=== PATIENT | male | born 1970 | race Caucasian/White ===

== ENCOUNTER → 2017-10-01 | Outpatient (CLI) | payer BC ==
--- NOTE | 2017-10-01 18:29 | MR ---
EXAMINATION TYPE: MR shoulder RT wo con DATE OF EXAM: 10/01/2017 COMPARISON: Outside right shoulder x-ray September 10, 2017 HISTORY: Rt shoulder pain x several years, no trauma TECHNIQUE: Multiplanar, multisequence imaging of the right shoulder is performed without contrast. FINDINGS: Rotator Cuff: There is marked increased signal distal supraspinatus tendon . There is large anterior near humeral head articulation. A few fibers anteriorly remain present, tear measures 1.[address] parasagittal image 9. Infraspinatus tendon is intact. Rotator cuff muscle bulk is preserved. Subs capularis tendon is intact. Acromioclavicular Joint: Distal acromion morphology is unremarkable. Some joint space loss and mild s purring is seen at acromioclavicular joint. Underlying fat plane is maintained. Glenohumeral Joint: There is small to moderate glenohumeral joint effusion. No significant spurring i s seen. Labrum: The labrum appears grossly intact given limitation of non-arthrogram study. Biceps Tendon: The long head of biceps is in normal location within bicipital groove. Bone marrow signal: Subchondral cystic change superior humerus is seen paracoronal image 16. Other: No additional significant abnormality is appreciated. IMPRESSION: High-grade tendinosis and significant fairly large partial tear distal supraspinatus tend on.
== END | disposition home or self-care (01) ==
LOC: RADMRIMAIN 16:40
PROVIDERS: ATTEND Orthopaedic Surgery
DX: S46.011A Strain of muscle(s) and tendon(s) of the rotator cuff of right shoulder, initial encounter (principal); M75.91 Shoulder lesion, unspecified, right shoulder

== ENCOUNTER → 2017-10-13 | Outpatient (CLI) | payer BC ==
[2017-10-13 16:27] LABS: Basophils # (A) 0.1 k/uL (0-0.2); Basophils % (A) 1 %; Eosinophils # (A) 0.3 k/uL (0-0.7); Eosinophils % (A) 3 %; HGB 13.9 gm/dL (13.0-17.5); Lymphocytes # (A) 3.3 k/uL (1.0-4.8); Lymphocytes % (A) 36 %; MCH 30.1 pg (25.0-35.0); MCHC 31.6 g/dL (31.0-37.0); MCV 95.2 fL (80.0-100.0); Mean Platelet Volume 6.7; Monocytes # (A) 0.4 k/uL (0-1.0); Monocytes % (A) 5 %; Neutrophils # (A) 4.9 k/uL (1.3-7.7); Neutrophils % (A) 54 %; Platelet Count 313 k/uL (150-450); RBC 4.63 m/uL (4.30-5.90); WBC 9.1 k/uL (3.8-10.6)
[2017-10-13 16:38] LABS: Potassium 4.4 mmol/L (3.5-5.1)
== END | disposition home or self-care (01) ==
LOC: LABWHC1 15:47
PROVIDERS: ATTEND Orthopaedic Surgery
DX: Z01.812 Encounter for preprocedural laboratory examination (principal); M75.41 Impingement syndrome of right shoulder
CPT/HCPCS: 36415; 80051; 85025

== ENCOUNTER 2017-10-29 05:48 | Day surgery (SDC) | payer BC ==
[2017-10-27 15:49] VITALS: BMI 38.3
--- NOTE | 2017-10-28 16:37 | HP ---
HISTORY AND PHYSICAL REASON FOR ADMISSION: Surgery on 10/29/17 HISTORY OF PRESENT ILLNESS: Dakota Esparza is a 47-year-old patient seen with progressive right shoulder pain. After we discussed treatment options, he elected to proceed with right shoulder arthroscopy. Consent regarding the procedure was obtained. PAST MEDICAL HISTORY: Noncontributory. PAST SURGICAL HISTORY: Noncontributory. MEDICATIONS: [place] as needed. ALLERGIES: ARE TO PENICILLIN AND MOTRIN. SOCIAL HISTORY: The patient currently smokes cigarettes. PHYSICAL EXAMINATION: Evaluation right shoulder flexion is 160 degrees, abduction 140 degrees, external rotation is 30 degrees with some weakness. There is tenderness along the anterolateral acromion rotator cuff insertion site. There is positive impingement at 110 degrees. Positive drop-arm sign. Distal neurovascular exam is intact. RADIOGRAPHS: Right shoulder 08/31/2017 revealed a type 2 anterior acromion. Cystic changes of the tuberosity and acromioclavicular joint osteoarthritis. An MRI of right shoulder revealed a rotator cuff tendon tear. IMPRESSION: 1. Right shoulder impingement with rotator cuff tear. 2. Right shoulder acromioclavicular joint osteoarthritis. 3. Tobacco use. PLAN: Right shoulder arthroscopy with subacromial decompression probable arthroscopic rotator cuff repair, possible Angie procedure and debridement. Surgery scheduled for 10/29/2017. MMODL / IJN: [id number] /
[~2017-10-29 05:48] MED LIST: ceFAZolin IN SWFI 2 GM/20 ML SYRINGE IVP ONE
[2017-10-29] MEDS ORDERED: ONDANSETRON 4 MG/2 ML VIAL IVP ONE ×2 (05:58→10:03)
[2017-10-29] MEDS ORDERED: MORPHINE SULFATE 2 MG/ML SYRINGE IV PRN (05:58)
[2017-10-29] MEDS ORDERED: LACTATED RINGERS 1,000 ML IV SCH (05:58)
[2017-10-29] MEDS ORDERED: MIDAZOLAM 2 MG/2 ML VIAL IV PRN (05:58)
[2017-10-29] MEDS ORDERED: SCOPOLAMINE 1.5MG/72HR PATCH TRANSDERM ONE (05:58)
[2017-10-29] MEDS ORDERED: DEXAMETHASONE SOD PHOSPHATE 10 MG/ML 1 ML VIAL IV ONE (05:58)
[2017-10-29] MEDS ORDERED: LIDOCAINE 1% 20 ML VIAL (10MG/ML) FOR IV START INTRADERMA PRN (05:58)
[2017-10-29] MEDS ORDERED: MIDAZOLAM 2 MG/2 ML VIAL IVP ONE (07:10)
[2017-10-29] MEDS ORDERED: PROPOFOL 10 MG/ML 20 ML VIAL IV ONE (07:25)
[2017-10-29] MEDS ORDERED: LIDOCAINE 1% INJ 10MG/ML (20 ML MDV) ONE (07:25)
[2017-10-29] MEDS ORDERED: LIDOCAINE 2%-EPI 1:100,000 20 ML VIAL ONE (07:25)
[2017-10-29] MEDS ORDERED: MIDAZOLAM 2 MG/2 ML VIAL ONE (07:25)
[2017-10-29] MEDS ORDERED: ROPIVACAINE 5 MG/ML 30 ML VIAL ONE (07:25)
[2017-10-29] MEDS ORDERED: fentaNYL (PF) 50 MCG/ML 2 ML AMP ONE (07:25)
[2017-10-29] MEDS ORDERED: SUCCINYLCHOLINE CHLORIDE 100 MG/5 ML SYR IV ONE (07:25)
[2017-10-29] MEDS ORDERED: LACTATED RINGERS 1,000 ML IV ONE (08:19)
[2017-10-29 09:03] VITALS: RESP 16; TEMP 97.2
--- NOTE | 2017-10-29 09:03 | P.OP ---
Date of Procedure: 10/29/17 Preoperative Diagnosis: Right shoulder impingement Postoperative Diagnosis: 1. Right shoulder rotator cuff tear 2. Right shoulder impingement 3. Right shoulder acromioclavicular joint osteoarthritis 4. Right shoulder partial long head biceps tendon tear 5. Right shoulder superficial labral tear 6. 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 Right shoulder arthroscopic rotator cuff repair 2. Right shoulder arthroscopic subacromial decompression 3. Right shoulder arthroscopic Angie procedure 4. Right shoulder arthroscopic biceps tenotomy 5. Right shoulder arthroscopic debridement labral tear 6. Right shoulder arthroscopic chondroplasty glenoid Implants: 2-5.5 valeris peek anchors Anesthesia: GETA, regional (Interscalene block) Surgeon: Aries Murguia Duty Engineer #1: Neel Morillo Estimated Blood Loss (ml): 12 Pathology: none sent Condition: stable Disposition: PACU Indications for Procedure: 47-year-old patient seen with progressive right shoulder pain. After treatment options were discussed, he elected to proceed with arthroscopy. Operative Findings: see description of procedure Description of Procedure: Patient underwent a shoulder block by department of anesthesia. The patient was then taken to the operative suite. The patient underwent a general anesthetic by the department of anesthesia. The patient was placed into a lateral position and secured. There was appropriate padding of the bony prominence. Right shoulder was then prepped and draped in normal sterile orthopedic fashion. We placed the extremity in 10 pounds of longitudinal traction. A posterior incision was now made for a posterior working portal site. The trocar and cannula were inserted into the glenohumeral joint. Arthroscopy was initiated. Spinal needle was now inserted anteriorly, to ascertain the anterior working portal site. An incision was now made in that area, a trocar was inserted followed by a probe. There was superficial tearing of the superior and anterior labrum. There was an area along the anterior glenoid with grade 1/2 chondromalacia. There was partial tearing and hyperemia of the biceps tendon. There was some obvious partial tearing along the supraspinous area at least visualized from the glenohumeral side. I debrided those labral tears down to stable tissue. I performed an arthroscopic biceps tenotomy. I performed a chondroplasty of the anterior glenoid. I debrided the undersurface of the rotator cuff tendon tearing. The residual labrum was stable. The residual osteochondral surface anterior glenoid stable. There did appear to be a through and through perforation distal supraspinatus visualized from glenohumeral side. Instruments now removed from the glenohumeral joint. Utilizing the posterior working portal site, the trocar and cannula were inserted into the subacromial space. Arthroscopy initiated. I made an incision 2 fingerbreadths lateral to the acromion. I introduced my trocar followed by my ArthroCare ablator. I now began ablating thick subacromial bursal tissue, which exposed the undersurface of the anterior acromion. This was diminished subacromial space. There was a very prominent anterior acromion. A motorized bur was introduced and a subacromial decompression was performed. I also excised some osteophytes off the inferior aspect of the distal clavicle. The AC joint was visualized and noted to be fairly arthritic. Our motorized bur was introduced in the anterior portal site and a Angie procedure was performed without difficulty, decompressing the AC joint nicely. I turned my attention to the rotator cuff. There was a 1-1.5 cm tear distal supraspinatus. I debrided the margins down to stable tissue. The defect now measured about 1.5 cm. I abraded the footprint with a motorized bur. I introduced 2 everted mattress sutures through good bites of rotator cuff tendon. When I pull the tendon over the footprint it appeared to have some dog earring occurring a little bit anteriorly and posteriorly. I passed 2 suture loops through good bites of rotator cuff tendon. I repaired the tendon with those 2 everted mattress sutures with one 5.5 anchor and then over that repaired the dogear element with a suture loops and one additional lateral 5.5 anchor. Residual suture limbs were clipped. We had good compression of the tendon along the footprint. I injected 1 mL of UCT intra-articular. Instruments now removed from the portal sites. All portal sites were approximated with nylon suture. Sterile dressings were applied followed by a shoulder immobilizer. Braxton BILLY assisted with the procedure. The patient was awakened, transferred to a bed, and taken to recovery in stable condition.
[2017-10-29 10:03] VITALS: BP 115/74; PULSE 73
[2017-10-29] MEDS ORDERED: HYDROcodone/APAP 7.5-325MG 1 EACH TAB PO ONE (10:08)
--- NOTE | 2017-10-29 19:46 | P.ONQ ---
Anesthesiology Proc Note - PNB - Peripheral Nerve Block Performed Right Interscalene Single Time Out Performed: Yes Procedure Start Time: 07:05 Procedure Stop Time: 07:11 Indication: Acute Post-Operative Pain, Requested by physician Sedation Type: Sedate with meaningful contact maintained Preparation: Sterile Prep Position: Supine Needle Size: 50mm (2") Needle Gauge: 21 Technique: Ultrasound Injectate: 0.5% Ropivacaine (see comment for volume) (ropi .5% 30cc) Blood Aspirated: No Pain Paresthesia on Injection Noted: No Resistance on Injection: Normal Events: Uneventful and Well Tolerated
== END 2017-10-29 10:37 | disposition home or self-care (01) ==
LOC: OR 05:48
PROVIDERS: ATTEND Orthopaedic Surgery
DX: M75.101 Unspecified rotator cuff tear or rupture of right shoulder, not specified as traumatic (principal); M75.41 Impingement syndrome of right shoulder; K21.9 Gastro-esophageal reflux disease without esophagitis; M19.011 Primary osteoarthritis, right shoulder; S46.111A Strain of muscle, fascia and tendon of long head of biceps, right arm, initial encounter; S43.491A Other sprain of right shoulder joint, initial encounter; M94.211 Chondromalacia, right shoulder; Z88.0 Allergy status to penicillin; Z88.6 Allergy status to analgesic agent; Z91.040 Latex allergy status; Z87.891 Personal history of nicotine dependence; Z79.891 Long term (current) use of opiate analgesic; Z79.899 Other long term (current) drug therapy
CPT/HCPCS: 64415; 29827; 29824; 29826; 29822; C1713; C1765; J2250; J1100; J2405; J2001; J3010; J2795; J0330; J2704; J0690

== ENCOUNTER → 2018-06-04 | Outpatient (CLI) | payer BC ==
--- NOTE | 2018-06-04 18:03 | MR ---
EXAMINATION TYPE: MR cervical spine wo con DATE OF EXAM: 06/04/2018 COMPARISON: Plain film 05/11/2018 HISTORY: Neck and shoulder pain TECHNIQUE: Multiplanar, multisequence images of the cervical spine were acquired. C2-C3: No evidence for degenerative disc disease. No disc bulge/herniation or protrusion. No Canal stenosis. Foramina are patent bilaterally. C3-C4: Posterior broad-based disc bulge causes mild anterior mass effect on the thecal sac, uncoverte bral joint hypertrophy encroaches on the bilateral facets, no significant central canal stenosis. C4-C5: Uncovertebral joint hypertrophy causes bilateral foraminal encroachment. No significant centra l stenosis. C5-C6: Posterior extension of endplate disc complex causes anterior mass effect on the thecal sac and likely contact with the cervical cord causing moderate to severe central canal stenosis. Circumferen tial extension endplate disc complex, uncovertebral joint hypertrophy cause significant foraminal enc roachment bilaterally. C6-C7: Posterior extension endplate disc complex results in anterior mass effect on the thecal sac, o nly mild central stenosis. Uncovertebral joint hypertrophy results in left-sided foraminal encroachme nt. C7-T1: No evidence for degenerative disc disease. No disc bulge/herniation or protrusion. No Canal stenosis. Foramina are patent bilaterally. Cervical segments are intact. There is normal alignment. Cervical spinal cord is of normal signal. Craniovertebral junction relationships are within normal limits. There is multilevel spondylosis. E ndplate discogenic marrow signal change with associated loss of disc height and signal present at C5- 6, C6-7. IMPRESSION: Spinal stenosis. Degenerative disc disease, multilevel foraminal encroachment.
== END ==
LOC: RADMRIMAIN 16:47
PROVIDERS: ATTEND Orthopaedic Surgery
DX: M48.02 Spinal stenosis, cervical region (principal); M50.30 Other cervical disc degeneration, unspecified cervical region
CPT/HCPCS: 72141

== ENCOUNTER → 2018-06-29 | Outpatient (CLI) | payer BC ==
[2018-06-25 16:16] VITALS: BMI 37.5
[2018-06-29 13:20] VITALS: BP 126/78; RESP 16
[2018-06-29 13:31] VITALS: PULSE 78
--- NOTE | 2018-06-29 14:44 | P.PAINCN ---
History of Present Illness - Reason for Consult Consult date: 06/29/18 - History of Present Illness This is initial consultation this is for this 48 years old male with a chronic history of severe neck pain with radiation to the right shoulder blade area, pain is constant and increased with any neck movement, patient had the history of right shoulder pain and he had right shoulder arthroscopy with right rotator cuff repair, he did well after the surgery ( done in October 2017 ) the pain improved after the surgery, and in April 2018 he started having severe neck pain with radiation towards the right shoulder, he had MRI of the cervical spine done, and it showed multilevel cervical degenerative disc disease and multilevel uncovertebral joint hypertrophy, patient describes his pain as aching , sharp pain increases with any neck movement, is always on the right side, increased hyperextension of the neck, he denies any motor or sensory deficit, he denies any change in the bowel movement or urination, no fever or night sweats, he denies any numbness or tingling sensation. Past Medical History Past Medical History: GERD/Reflux, Musculoskeletal Disorder Additional Past Medical History / Comment(s): neck pain on right side for a few months History of Any Multi-Drug Resistant Organisms: None Reported Past Surgical History: Orthopedic Surgery, Tonsillectomy Additional Past Surgical History / Comment(s): hemorrhoidectomy,vasectomy,right rotator cuff repair Past Anesthesia/Blood Transfusion Reactions: No Reported Reaction Past Psychological History: No Psychological Hx Reported Smoking Status: Former smoker Past Alcohol Use History: Occasional Additional Past Alcohol Use History / Comment(s): quit smoking 2 yrs. ago Past Drug Use History: Marijuana Additional Drug Use History / Comment(s): rare use - Past Family History Mother Family Medical History: No Reported History Medications and Allergies Home Medications Medication Instructions Recorded Confirmed Type Omeprazole [PriLOSEC] 20 mg PO AC-BRKFST 10/27/17 06/29/18 History Naproxen Sodium [Aleve] 220 mg PO BID 06/25/18 06/29/18 History Allergies Allergy/AdvReac Type Severity Reaction Status Date / Time ibuprofen Allergy Rash/Hives Verified 06/29/18 13:09 Latex, Natural Rubber Allergy Rash/Hives Verified 06/29/18 13:09 Penicillins Allergy Rash/Hives Verified 06/29/18 13:09 Physical Exam Vitals: Vital Signs Pulse Resp BP Pulse Ox 06/29/18 13:10 78 16 126/78 98 Social history : not smoker , NO ETOH , NO Illegal drugs use . Family history : positive for Review of Systems : 1- Constitutional : no chills , no fever , no night sweats , 2- Ears : no ear discharge , no change in hearing 3-Nose, Mouth ,Throat ; no bleeding gums, no sore throat , no epistaxis , 4-Cardiovascular : Denies chest pain, , no orthopnea , no palpitation 5-Respiratory : Denies cough , no dyspnea , no hemoptysis 6-Gastrointestinal :, no change in bowel habits , no coffee- ground emesis . 7-Genitourinary : No hematuria , no discharge , no incontinence, 8-Musculoskeletal : No gait dysfunction , report neck pain with radiation towards the right shoulder blade area , 9- Neurological : no ataxia , no tremor , no sezure , 10-Psychatric , no suicidal ideation no hallucination 11- Endocrine : no cold intolerence , no polyuria , no polydypsia , 12-Hematologic : no easy bleeding , no easy brusing , 13-Allergic / immunology : no angioedema , no wheezing ,no allergic rhinitis 14-Integumentary : no brttle nails , no change hair / nails , no foot/leg ulcers . Physical Examinations : 1-Constitutional : Cooperative , not in acute distress . 2-HEENT : nech ; supple , no Lymphadenopathy , no Thyromegaly , :eyes , no icterus, no photophobia . ENT : , normal oropharynx , no Thrush 3- Respiratory : Chest clear to auscultations Bilaterally , no wheezing . 4- Cardiovascular : regular rate and rhythem , S1 , S2 , no S3 , no S4. 5- Gastrointestinal: abdomen soft no tenderness , no organomegally . 6- Genitourinary : Defferred . 7-Integumentary : No cellulitis , no ulcers , normal skin turgor , no cyanotic . 8- neurologic : Cranial nerve II to XII intact , no focal neurological deffecit 9-psychatric : alert , oriented X 3 , appropriate affect , intact judgment and insight . 10-Lymphatic : no Lymphadenopathy. 11- musculoskeltal: normal gait Cervical Spine motor stregnth in the deltoid and biceps, normal right side , normal Left side motor stregnth biceps and the wrist extensors normal right side ,normal left side . motor stregnth in the triceps muscle . normal Right side , normal Left side deep tendon reflexes normal at the biceps , normal at Brachioradialis , normal at triceps. positive cervical facet loading test on the right side only Lumber spine moter stegnth lower extremities ,thigh and legs 5/5 Right side , 5/5 Left side Results Comments: MRI of the cervical spine done 06/04/2018= C34 posterior broad based disc bulging and uncVertebral joint hypertrophy and facet hypertrophy, C4 5 and cold vertebral joint hypertrophy and bilateral foraminal engorgement, C5 6 moderate to severe canal stenosis, and and cold vertebral joint hypertrophy, C6 7 and uncovertebral joint hypertrophy Assessment and Plan Plan: Assessment and plan=1-severe neck pain secondary to cervical spondylosis with cervical facet arthropathy, and secondary to cervical degenerative disc disease Clinically most of the pain is coming from the facetogenic component, patient will be scheduled for diagnostic medial branch block cervical area, right side C3 4, C4 5, C5 6 , and C6 7 , x2 and benefits possibly proceed with the radiofrequency ablation Time with Patient: Greater than 30 PQRS Measure Charge Sheet PQRS Narrative: Smoking Status Former smoker Do You Want the Pneumonia No Vaccine AT THIS TIME? Blood Pressure 126/78 Pain Intensity [Right 5 Posterior Neck] Scale Used Numeric (1 - 10) Hx Alcohol Use (MH) No Home Medications: Ambulatory Orders Omeprazole [PriLOSEC] 20 mg PO AC-BRKFST 10/27/17 Naproxen Sodium [Aleve] 220 mg PO BID 06/25/18
== END | disposition home or self-care (01) ==
LOC: PNWHC3 12:41
PROVIDERS: ATTEND Specialist
DX: G89.29 Other chronic pain (principal); M50.21 Other cervical disc displacement, high cervical region; M50.30 Other cervical disc degeneration, unspecified cervical region; M47.812 Spondylosis without myelopathy or radiculopathy, cervical region; M46.92 Unspecified inflammatory spondylopathy, cervical region; K21.9 Gastro-esophageal reflux disease without esophagitis; Z87.891 Personal history of nicotine dependence; Z98.890 Other specified postprocedural states; Z79.1 Long term (current) use of non-steroidal anti-inflammatories (NSAID); Z79.899 Other long term (current) drug therapy; Z88.0 Allergy status to penicillin; Z88.6 Allergy status to analgesic agent; Z91.040 Latex allergy status
CPT/HCPCS: 99211

== ENCOUNTER → 2018-07-13 | Day surgery (SDC) | payer BC ==
[~2018-07-13] MED LIST changes: +SODIUM CHLORIDE 0.9% 500 ML 500 ML IV ONE; -ceFAZolin IN SWFI 2 GM/20 ML SYRINGE IVP ONE
--- NOTE | 2018-07-13 07:49 | P.PCN ---
Date of Procedure: 07/13/18 Surgeon: Jae Sanchez Description of Procedure: PREOPERATIVE DIAGNOSIS: Cervical Spondylosis with Facet Arthropathy.without myelopathy POSTOPERATIVE DIAGNOSIS: Cervical Spondylosis Facet Arthropathy. Without myelopathy PROCEDURES: Diagnostic , right C3, C4, C5, C6 medial branch blocks, with fluoroscopic guidance ANESTHESIA: Local with 1% lidocaine; IV sedation with Versed. EBL: Minimal PROCEDURE INDICATION: The patient with neck pain secondary to cervical arthropathy unresponsive to more conservative treatments. He presents today for his first cervical medial branch nerve block. PROCEDURE DESCRIPTION / TECHNIQUE: The patient was seen and identified in the preoperative area. Risks, benefits, complications, and alternatives were discussed with the patient, the patient agreed to proceed with the procedure and signed the consent. IV was started. Vital signs remained stable throughout the procedure. Patient was taken to the OR and time out was completed. The patient was placed in the prone position on the procedure table. A pillow was placed under the patients chest to increase the cervical interlaminar space. The cervical area was prepped and draped in the usual sterile fashion. Critical pause was taken. Vital signs were closely monitored during the procedure. Conscious sedation was used during the procedure to decrease patients anxiety. Using cross-table lateral fluoroscopy, the centroid of the trapezoid of the right side of the first level was identified, marked, and localized with 1% lidocaine 1 ml at each level for skin and subcutaneous infiltrations . Subsequently, a 25 G spinal needle was advanced guided by fluoroscopy to the centroid of the trapezoid . [place] tip position was confirmed at the centroid of the trapezoids anteroposterior fluoroscopy. Subsequently, 1 mL of 0.25% bupivacaine with 10 mg of Depo-Medrol was injected at each level. COMPLICATIONS: No acute complications. COMMENTS: DISPOSITION / PLANS: The patient was placed in a supine position and transferred to the recovery area in a stable condition for observation and was discharged from the recovery room after meeting discharge criteria. Home discharge instructions given to the patient by the staff. The patient was reexamined prior to discharge. He will follow-up for repeat of this procedure in approximately 2 weeks.
[2018-07-13 08:16] VITALS: BP 113/62; PULSE 71; RESP 20
--- NOTE | 2018-07-13 10:35 | FL ---
EXAMINATION TYPE: FL guided pain mgmt statistic DATE OF EXAM: 07/13/2018 COMPARISON: NONE HISTORY: Neck pain. Fluoroscopic documentation. TECHNIQUE: Fluoroscopy. FINDINGS/IMPRESSION: Fluoroscopic guidance was provided during procedure performed by Dr. Sanchez. A total of 6 seconds of fluoroscopic time was utilized during the procedure and 2 spot images was acqu ired during right cervical facet injection demonstrating localization at multiple levels of the cervi romeo spine.
== END | disposition home or self-care (01) ==
LOC: ORPAIN 06:42
PROVIDERS: ATTEND Pain Medicine Pain Medicine
DX: M47.22 Other spondylosis with radiculopathy, cervical region (principal); M50.10 Cervical disc disorder with radiculopathy, unspecified cervical region; G89.29 Other chronic pain; K21.9 Gastro-esophageal reflux disease without esophagitis; Z87.891 Personal history of nicotine dependence; Z79.1 Long term (current) use of non-steroidal anti-inflammatories (NSAID); Z79.899 Other long term (current) drug therapy; Z88.6 Allergy status to analgesic agent; Z88.0 Allergy status to penicillin; Z91.040 Latex allergy status
CPT/HCPCS: 64490; 64491; 64492; J2250; J1030; J3010; 99152

== ENCOUNTER 2018-07-26 09:26 | Day surgery (SDC) | payer BC ==
[2018-07-22 15:34] VITALS: BMI 37.5
[~2018-07-26 09:26] MED LIST changes: -SODIUM CHLORIDE 0.9% 500 ML 500 ML IV ONE; +SODIUM CHLORIDE 0.9% 500 ML 500 ML IV SCH
[2018-07-26 09:38] VITALS: TEMP 98.5
[2018-07-26] MEDS ORDERED: LACTATED RINGERS 1,000 ML IV ONE (09:38)
[2018-07-26] MEDS ORDERED: LIDOCAINE 1% 20 ML VIAL (10MG/ML) FOR IV START INTRADERMA ONE (09:38)
--- NOTE | 2018-07-26 10:12 | P.PCN ---
Date of Procedure: 07/26/18 Preoperative Diagnosis: cervical spondylosis without myelopathy Postoperative Diagnosis: same Surgeon: Shraddha Escoto Description of Procedure: Procedure: Bilateral Cervical Medial Branch Block at C 3/4, 4/5, 5/6 - #2 Indications: Neck Pain Surgeon: Shraddha Escoto IV sedation with: versed 2mg Anesthesia: Conscious Sedation Given for Anxiety and fear of needles The patient was seen and examined in the PO. Procedure risks and benefits were fully reviewed with patient. The patient understands this is a diagnostic as well as a therapeutic procedure and that the goal of the procedure is to inject medication on to the medial branch or small nerves that go into the facet joints. In this way, we can hopefully identify which of these joints, if any, may be contributing to their pain. Informed consent for the procedure was obtained. The patient was taken into the office fluoroscopy procedure room and placed lateral on the table. Vital signs were closely monitored during the procedure. The skin over the area was prepped with Betadine X 3 and draped in usual sterile manner. Sterile technique was observed throughout procedure. Under fluoroscopic guidance, the target injection areas of the C 3/4, 4/5, 5/6 medial branch nerve locations were visualized in AP, oblique and lateral views. Using biplanar fluoroscopy, a 25 gauge 3.5 inch spinal needle was inserted into proper position where the tip of the needle was located at the midpoint of the quadrangle at each level. After negative aspiration for blood and CSF, 0.5cc of 0.25 % Marcaine was injected into each of the targeted areas. The same procedure was performed on the right side. The needles were withdrawn intact. No complications were noted during the procedure. 2 cc of marcaine used total. The patient tolerated procedure well. The patient was placed in supine position and transferred to the recovery area for observation and remained stable until discharged home. Home discharge instructions given to the patient by the staff. The patient was reexamined prior to discharge. The patient will schedule a follow up in the clinic to discuss results and potential RFA.
[2018-07-26] MEDS ORDERED: IV FLUID CONTINUATION 600 ML IV ONE (10:17)
[2018-07-26 10:32] VITALS: RESP 18
[2018-07-26 10:52] VITALS: BP 117/80; PULSE 69
--- NOTE | 2018-07-26 12:43 | FL ---
EXAMINATION TYPE: FL guided pain mgmt statistic DATE OF EXAM: 07/26/2018 COMPARISON: NONE HISTORY: Neck pain. Fluoroscopic documentation. TECHNIQUE: Fluoroscopy. FINDINGS/IMPRESSION: Fluoroscopic guidance was provided during procedure performed by Dr. Escoto. A total of 13 seconds of fluoroscopic time was utilized during the procedure and 1 spot images was ac quired demonstrating localization of the cervical spine.
== END 2018-07-26 10:55 | disposition home or self-care (01) ==
LOC: ORPAIN 09:26
PROVIDERS: ATTEND Hospitalist
DX: G89.29 Other chronic pain (principal); M47.22 Other spondylosis with radiculopathy, cervical region; K21.9 Gastro-esophageal reflux disease without esophagitis; Z87.891 Personal history of nicotine dependence; Z79.1 Long term (current) use of non-steroidal anti-inflammatories (NSAID); Z79.899 Other long term (current) drug therapy; Z88.0 Allergy status to penicillin; Z88.6 Allergy status to analgesic agent; Z91.040 Latex allergy status
CPT/HCPCS: 64490; 64491; 64492; J2250

== ENCOUNTER → 2018-08-25 | Outpatient (CLI) | payer BC ==
[2018-08-25 14:04] VITALS: BP 119/79; PULSE 79; RESP 16
--- NOTE | 2018-08-25 14:28 | P.PN ---
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 The patient denies any weakness in the upper or lower extremities however he feels some numbness in the right arm. He does have a rotator cuff tear on the right side. Today, pt denies new-onset weakness, bowel/bladder incontinence, or any other signs or symptoms of cauda equina syndrome. There are no signs of acute intoxication, and no indications of medication diversion or overuse. In addition to above, 13-point review of systems is also negative for chest pain , shortness of breath, changes in vision, changes in hearing, new onset weakness , abdominal pain, diarrhea, extreme fatigue, malaise, fever, skin changes, homicidal or suicidal ideation, or bowel or bladder incontinence. Vital Signs: Reviewed in EMR Gen: AAOx3, NAD HEENT: PERRLA,hearing grossly normal Pulm: resp unlabored,CTA Heart:S1,S2, No Mur Neck: supple, trachea midline Neuro exam of the upper extremities: Within normal limits Positive tenderness on the right side of his cervical spine Neuro: CN II-XII grossly intact, Imaging: Reviewed in EMR/chart Assessment: Cervical spondylosis without myelopathy Obesity Plan: 1. Explanation: Opioid and psychological risk scores were reviewed. Diagnoses , prognoses, and multiple treatment options including but not limited to physical therapy, interventional therapies, adjuvant medical therapies, narcotic medication therapies, and surgery were discussed with the patient and all questions were answered to the patient's satisfaction. 2. Opioid agreement: We do not prescribe opioids. 3. Counseling: The patient was counseled extensively on SMOKING CESSATION, BODY MASS INDEX, EXERCISE. Specifically, the patient was instructed regarding the importance of smoking cessation, obesity, and exercise in the context of both chronic pain and overall health. 4. Procedures: Scheduled for right medial branch RFA for levels C4, 5, 6 and if possible 7 5. Consultations: None 6. Investigations: None 7. Medications: None 8. Disposition: Return to the above-mentioned procedure 9. Maps were reviewed and were appropriate. PQRS measures: 1-Patient's medications are documented in the chart. 2-Tobacco use is negative, counseling given 3-Patient has not had a pneumococcal vaccine. 4-Advanced care planning discussed, patient unable to give 5-Opioid contract signed with the patient. 6-Pain positive, follow-up visit or procedure scheduled 7-Patient's blood pressure measured and documented within normal limits. 8-Patient's weight was measured, and body mass index ABOVE the normal limits, and counseling was done. Patient instructed to follow up with PCP. 9-Patient WAS NOT identified as an unhealthy alcohol user. Objective - Vital Signs Vital signs: Vital Signs Temp Pulse 79 08/25/18 13:56 Resp 16 08/25/18 13:56 BP 119/79 08/25/18 13:56 Pulse Ox 95 08/25/18 13:56 Intake & Output 08/24/18 08/25/18 08/25/18 18:59 06:59 18:59 Weight 111.13 kg
== END ==
LOC: PNWHC3 13:37
PROVIDERS: ATTEND Anesthesiology
DX: M47.812 Spondylosis without myelopathy or radiculopathy, cervical region (principal); E66.9 Obesity, unspecified; Z68.38 Body mass index [BMI] 38.0-38.9, adult
CPT/HCPCS: 99211

== ENCOUNTER → 2020-06-26 | Outpatient (CLI) | payer BC | END | disposition home or self-care (01) | LOC: LABWHC1 13:10 | PROVIDERS: ATTEND Physician Assistant | DX: R05 Cough (principal); R06.02 Shortness of breath | CPT/HCPCS: U0003; C9803 ==

== ENCOUNTER → 2020-07-02 | Outpatient (CLI) | payer BC ==
--- NOTE | 2020-07-04 16:05 | XR ---
EXAMINATION TYPE: XR chest 2V DATE OF EXAM: 07/02/2020 COMPARISON: None HISTORY: 50-year-old male with cough TECHNIQUE: Frontal and lateral views FINDINGS: The cardiomediastinal silhouette, aorta, and pulmonary vasculature are within normal limits. Mild int erstitial prominence has a chronic appearance. Otherwise, lungs and pleural spaces are clear. IMPRESSION: Chronic appearing changes without acute cardiopulmonary process.
== END | disposition home or self-care (01) ==
LOC: RADXRYALE 09:07
PROVIDERS: ATTEND Physician Assistant Medical
DX: R05 Cough (principal)
CPT/HCPCS: 71046

== ENCOUNTER → 2020-07-30 | Outpatient (CLI) | payer BC ==
--- NOTE | 2020-07-30 08:32 | CT ---
EXAMINATION TYPE: CT chest wo con DATE OF EXAM: 07/30/2020 COMPARISON: Radiograph 07/02/2020 HISTORY: 50-year-old male Cough TECHNIQUE: Contiguous axial scanning of the chest without IV contrast. Coronal and sagittal reconstru ctions performed. CT DLP: 643 mGycm Automated exposure control for dose reduction was used. FINDINGS: Heart normal size with trace anterior pericardial fluid. Minimal LCA coronary artery calcifications a re present. Aorta normal caliber with conventional arch vessel branching anatomy. No thoracic lymphadenopathy by CT size criteria. No consolidation or pleural effusion. Slightly heterogeneous to hypodense appearance to the hepatic parenchyma. There may be underlying fat ty infiltration are the nonspecific hepatocellular disease. Assessment limited on noncontrast CT. Bones: Mild anterior endplate spondylosis lower thoracic spine. No osseous destructive process. IMPRESSION: 1. NO ACUTE PULMONARY PROCESS. 2. SLIGHT HETEROGENEOUS, HYPODENSE APPEARANCE TO THE HEPATIC PARENCHYMA COULD REFLECT UNDERLYING FATT Y INFILTRATION OR NONSPECIFIC HEPATOCELLULAR DISEASE. CORRELATE WITH LFT's, LIPID PROFILE, AND PATIEN T RISK FACTORS.
== END | disposition home or self-care (01) ==
LOC: RADCTMAIN 06:44
PROVIDERS: ATTEND Family Medicine
DX: J45.991 Cough variant asthma (principal); R06.02 Shortness of breath
CPT/HCPCS: 71250

== ENCOUNTER 2021-11-12 20:38 | Emergency (ER) | payer BC ==
[2021-11-12 20:46] VITALS: RESP 18; TEMP 97.8
[2021-11-12 21:24] LABS: Basophils # (A) 0.1 k/uL (0-0.2); Basophils % (A) 1 %; Eosinophils # (A) 0.3 k/uL (0-0.7); Eosinophils % (A) 3 %; HGB 14.9 gm/dL (13.0-17.5); Lymphocytes # (A) 3.7 k/uL (1.0-4.8); Lymphocytes % (A) 43 %; MCH 30.1 pg (25.0-35.0); MCHC 32.3 g/dL (31.0-37.0); MCV 93.2 fL (80.0-100.0); Mean Platelet Volume 7.6; Monocytes # (A) 0.4 k/uL (0-1.0); Monocytes % (A) 4 %; Neutrophils % (A) 47 %; Platelet Count 307 k/uL (150-450); RBC 4.93 m/uL (4.30-5.90); RDW 12.8 % (11.5-15.5); WBC 8.6 k/uL (3.8-10.6)
[2021-11-12 21:39] LABS: ALT 41 U/L (4-49); AST 45 U/L (17-59); African American GFR (CKD) >90 (>60 ml/min/1.73 sqM); Albumin 4.4 g/dL (3.5-5.0); Alkaline Phosphatase 62 U/L (38-126); Anion Gap 8 mmol/L; Blood Urea Nitrogen 13 mg/dL (9-20); Calcium 9.4 mg/dL (8.4-10.2); Carbon Dioxide 25 mmol/L (22-30); Chloride 107 mmol/L (98-107); Glucose 96 mg/dL (74-99); Non-African American GFR(CKD) >90 (>60 ml/min/1.73 sqM); Potassium 3.8 mmol/L (3.5-5.1); Sodium 140 mmol/L (137-145); Total Bilirubin 0.9 mg/dL (0.2-1.3); Total Protein 7.5 g/dL (6.3-8.2)
[2021-11-12] MEDS ORDERED: ASPIRIN 81 MG PO STA (21:48)
--- NOTE | 2021-11-12 21:50 | ED ---
General Adult HPI - General Chief complaint: Chest Pain Stated complaint: Chest Pain,SOB Time Seen by Provider: 11/12/21 21:14 Source: patient Mode of arrival: ambulatory Limitations: no limitations - History of Present Illness Initial comments: Dictation was produced using [employer] (formerly [employer] dictation software. please excuse any grammatical, word or spelling errors. Chief Complaint: 51-year-old male presents emergency department for chest pain History of Present Illness: Is a 51-year-old male presents emergency department for chest pain. Patient states he's been getting these intermittent pressure- like sensations to substernal area. He states that the pain is nonradiating and associated with diaphoresis or nausea. He began having episodes 48 hours ago that have been increasing in frequency and intensity. Patient states that during these episodes he does have associated shortness of breath. Patient has a history of coronary artery disease. He has remote history of smoking. Denies any history of diabetes, high cholesterol. No significant family history of cardiac disease. insisted that patient come to the emergency department given that she had a recent family member that suffered from heart attack. He went to his primary care physician's office and had an EKG performed. He was discharged from the PCPs office however his symptoms he have progressive and which is why he ended up in the emergency department. Patient is asymptomatic at the bedside currently. The ROS documented in this emergency department record has been reviewed and confirmed by me. Those systems with pertinent positive or negative responses have been documented in the HPI. All other systems are other negative and/or noncontributory. PHYSICAL EXAM: General Impression: Alert and oriented x3, not in acute distress HEENT: Normocephalic atraumatic, extra-ocular movements intact, pupils equal and reactive to light bilaterally, mucous membranes moist. Cardiovascular: Heart regular rate and rhythm Chest: Able to complete full sentences, no retractions, no tachypnea Abdomen: abdomen soft, non-tender, non-distended, no organomegaly Musculoskeletal: Pulses present and equal in all extremities, no peripheral edema Motor: no focal deficits noted Neurological: CN II-XII grossly intact, no focal motor or sensory deficits noted Skin: Intact with no visualized rashes Psych: Normal affect and mood ED course: 51-year-old male presents emergency department for atypical chest pain typical features. Signs upon arrival are within acceptable limits. EKG does not show any signs of ischemia or infarction. Is pain-free at the moment. Laboratory evaluation obtained. CBC, coag panel, metabolic panel is unremarkable. Troponin is negative. Chest x-ray shows no acute processes. Disposition options were discussed. Patient agreeable for serial troponin to determine disposition. patient care signed out to Dr. Jenkins for follow up of second tropopnin. Patient given aspirin. Second troponin was negative. Patient discharged follow-up with primary care doctor for outpatient workup of chest pain. EKG interpretation: Ventricular rate 65, sinus rhythm, IA interval 143, appears 94, QTC 404. No IA prolongation, no QTC prolongation, no ST or T-wave changes noted. Overall, this EKG is unremarkable - Related Data Home Medications Medication Instructions Recorded Confirmed Omeprazole [PriLOSEC] 20 mg PO BID 10/27/17 11/12/21 Cetirizine HCl [Zyrtec] 10 mg PO DAILY 11/12/21 11/12/21 Cholecalciferol [Vitamin D3 (25 25 mcg PO DAILY 11/12/21 11/12/21 Mcg = 1000 Iu)] Losartan Potassium 50 mg PO DAILY 11/12/21 11/12/21 Melatonin 5 mg PO HS PRN 11/12/21 11/12/21 Rosman-3 Fatty Acids/Fish Oil [Fish 1 cap PO DAILY 11/12/21 11/12/21 Oil 1,000 mg Softgel] Pravastatin Sodium [Pravachol] 80 mg PO HS 11/12/21 11/12/21 Allergies Allergy/AdvReac Type Severity Reaction Status Date / Time ibuprofen Allergy Rash/Hives Verified 11/12/21 21:55 Latex, Natural Rubber Allergy Rash/Hives Verified 11/12/21 21:55 Penicillins Allergy Rash/Hives Verified 11/12/21 21:55 Review of Systems ROS Statement: Those systems with pertinent positive or pertinent negative responses have been documented in the HPI. ROS Other: All systems not noted in ROS Statement are negative. Past Medical History Past Medical History: GERD/Reflux, Musculoskeletal Disorder Additional Past Medical History / Comment(s): neck pain on right side for a few months History of Any Multi-Drug Resistant Organisms: None Reported Past Surgical History: Orthopedic Surgery, Tonsillectomy Additional Past Surgical History / Comment(s): hemorrhoidectomy,vasectomy,right rotator cuff repair Past Anesthesia/Blood Transfusion Reactions: No Reported Reaction Past Psychological History: No Psychological Hx Reported Smoking Status: Former smoker Past Alcohol Use History: Occasional Past Drug Use History: Marijuana - Past Family History Mother Family Medical History: No Reported History General Exam Limitations: no limitations Course Vital Signs 11/12/21 11/12/21 11/12/21 20:43 20:53 23:11 Temperature 97.8 F Pulse Rate 68 64 62 Respiratory 18 18 18 Rate Blood Pressure 150/83 139/84 110/60 O2 Sat by Pulse 98 96 93 L Oximetry 11/13/21 11/13/21 00:56 02:43 Temperature Pulse Rate 52 L 54 L Respiratory 18 18 Rate Blood Pressure 128/77 118/84 O2 Sat by Pulse 95 95 Oximetry Medical Decision Making - Lab Data Result diagrams: 11/12/21 21:16 11/12/21 21:16 Lab Results 11/12/21 11/12/21 11/12/21 Range/Units 21:16 21:16 21:16 WBC 8.6 (3.8-10.6) k/uL RBC 4.93 (4.30-5.90) m/uL Hgb 14.9 (13.0-17.5) gm/dL Hct 46.0 (39.0-53.0) % MCV 93.2 (80.0-100.0) fL MCH 30.1 (25.0-35.0) pg MCHC 32.3 (31.0-37.0) g/dL RDW 12.8 (11.5-15.5) % Plt Count 307 (150-450) k/uL MPV 7.6 Neutrophils % 47 % Lymphocytes % 43 % Monocytes % 4 % Eosinophils % 3 % Basophils % 1 % Neutrophils # 4.0 (1.3-7.7) k/uL Lymphocytes # 3.7 (1.0-4.8) k/uL Monocytes # 0.4 (0-1.0) k/uL Eosinophils # 0.3 (0-0.7) k/uL Basophils # 0.1 (0-0.2) k/uL PT 10.3 (9.0-12.0) sec INR 0.9 (<1.2) APTT 25.2 (22.0-30.0) sec Sodium 140 (137-145) mmol/L Potassium 3.8 (3.5-5.1) mmol/L Chloride 107 (98-107) mmol/L Carbon Dioxide 25 (22-30) mmol/L Anion Gap 8 mmol/L BUN 13 (9-20) mg/dL Creatinine 0.72 (0.66-1.25) mg/dL Est GFR (CKD-EPI)AfAm >90 (>60 ml/min/1.73 sqM) Est GFR (CKD-EPI)NonAf >90 (>60 ml/min/1.73 sqM) Glucose 96 (74-99) mg/dL Calcium 9.4 (8.4-10.2) mg/dL Magnesium 2.0 (1.6-2.3) mg/dL Total Bilirubin 0.9 (0.2-1.3) mg/dL AST 45 (17-59) U/L ALT 41 (4-49) U/L Alkaline Phosphatase 62 (38-126) U/L Troponin I (0.000-0.034) ng/mL Total Protein 7.5 (6.3-8.2) g/dL Albumin 4.4 (3.5-5.0) g/dL 11/12/21 11/13/21 Range/Units 21:16 00:56 WBC (3.8-10.6) k/uL RBC (4.30-5.90) m/uL Hgb (13.0-17.5) gm/dL Hct (39.0-53.0) % MCV (80.0-100.0) fL MCH (25.0-35.0) pg MCHC (31.0-37.0) g/dL RDW (11.5-15.5) % Plt Count (150-450) k/uL MPV Neutrophils % % Lymphocytes % % Monocytes % % Eosinophils % % Basophils % % Neutrophils # (1.3-7.7) k/uL Lymphocytes # (1.0-4.8) k/uL Monocytes # (0-1.0) k/uL Eosinophils # (0-0.7) k/uL Basophils # (0-0.2) k/uL PT (9.0-12.0) sec INR (<1.2) APTT (22.0-30.0) sec Sodium (137-145) mmol/L Potassium (3.5-5.1) mmol/L Chloride (98-107) mmol/L Carbon Dioxide (22-30) mmol/L Anion Gap mmol/L BUN (9-20) mg/dL Creatinine (0.66-1.25) mg/dL Est GFR (CKD-EPI)AfAm (>60 ml/min/1.73 sqM) Est GFR (CKD-EPI)NonAf (>60 ml/min/1.73 sqM) Glucose (74-99) mg/dL Calcium (8.4-10.2) mg/dL Magnesium (1.6-2.3) mg/dL Total Bilirubin (0.2-1.3) mg/dL AST (17-59) U/L ALT (4-49) U/L Alkaline Phosphatase (38-126) U/L Troponin I <0.012 <0.012 (0.000-0.034) ng/mL Total Protein (6.3-8.2) g/dL Albumin (3.5-5.0) g/dL Disposition Clinical Impression: Chest pain Disposition: HOME SELF-CARE Instructions (If sedation given, give patient instructions): Chest Pain (ED) Is patient prescribed a controlled substance at d/c from ED?: No Referrals: Brad Quintanilla DO [Primary Care Provider] - 1-2 days
[2021-11-12 21:53] LABS: INR 0.9 (<1.2); Partial Thromboplastin Time 25.2 sec (22.0-30.0); Prothrombin Time 10.3 sec (9.0-12.0)
--- NOTE | 2021-11-12 22:04 | XR ---
EXAMINATION TYPE: XR chest 2V DATE OF EXAM: 11/12/2021 9:26 PM COMPARISON: 07/02/2020 TECHNIQUE: XR chest 2V Frontal and lateral views of the chest. CLINICAL INDICATION:Male, 51 years old with history of Chest Pain; FINDINGS: Lungs/Pleura: There is no evidence of pleural effusion, focal consolidation, or pneumothorax. Pulmonary vascularity: Unremarkable. Heart/mediastinum: Cardiomediastinal silhouette is unremarkable. Musculoskeletal: No acute osseous pathology. IMPRESSION: No acute cardiopulmonary disease/process.
[2021-11-13 02:44] VITALS: BP 118/84; PULSE 54
== END 2021-11-13 02:46 ==
LOC: EC 20:38
DX: R07.89 Other chest pain (principal); K21.9 Gastro-esophageal reflux disease without esophagitis; F12.90 Cannabis use, unspecified, uncomplicated; Z88.6 Allergy status to analgesic agent; Z91.040 Latex allergy status; Z88.0 Allergy status to penicillin; Z87.891 Personal history of nicotine dependence
CPT/HCPCS: 36415; 71046; 80053; 83735; 84484; 85025; 85610; 85730; 93005; 99285

== ENCOUNTER → 2023-03-27 | Outpatient (CLI) | payer BC ==
--- NOTE | 2023-03-27 09:56 | XR ---
EXAMINATION TYPE: XR Hip Bilateral Complete DATE OF EXAM: 03/27/2023 9:51 AM INDICATION: Patient age:Male; 53 years old; Reason for study: [id number], [id number] EBENEZER HIP PAIN; [facility]. COMPARISON: None. TECHNIQUE: Both hips were examined in frontal and lateral projections. FINDINGS: No evidence of any acute osseous pathology, joint dislocation, or soft tissue swelling. No significant joint space narrowing or osteophytosis noted. IMPRESSION: No acute osseous pathology.
== END | disposition home or self-care (01) ==
LOC: RADXRYALE 08:38
PROVIDERS: ATTEND Family Medicine
DX: M25.551 Pain in right hip (principal); M25.552 Pain in left hip
CPT/HCPCS: 73521

== ENCOUNTER → 2024-05-03 | Outpatient (CLI) | payer BC ==
--- NOTE | 2024-05-03 17:01 | XR ---
EXAMINATION TYPE: XR ankle complete RT DATE OF EXAM: 05/03/2024 COMPARISON: None HISTORY: Pain, fall last week TECHNIQUE: 3 view right ankle FINDINGS: Small plantar calcaneal heel spur is present. Ankle mortise is intact. No acute fracture or dislocation evident. Soft tissues appear normal. Follow up exams can be performed as clinically indicated. IMPRESSION: 1. No acute osseous abnormality radiographically apparent.
== END | disposition home or self-care (01) ==
LOC: RADXRYALE 16:28
PROVIDERS: ATTEND Family Medicine
DX: M77.31 Calcaneal spur, right foot (principal)